=== PATIENT | female | born 1960 | race Caucasian/White ===

== ENCOUNTER → 2018-02-22 | Outpatient (CLI) | payer MEDICARE, MEDICAID | END | disposition home or self-care (01) | LOC: PCVCCLINIC 14:35 | DX: I25.10 Atherosclerotic heart disease of native coronary artery without angina pectoris (principal); J44.9 Chronic obstructive pulmonary disease, unspecified; F17.200 Nicotine dependence, unspecified, uncomplicated; I10 Essential (primary) hypertension; Z79.82 Long term (current) use of aspirin | CPT/HCPCS: 80061; 93005; G0463 ==

== ENCOUNTER → 2018-03-05 | Outpatient (CLI) | payer MEDICARE, MEDICAID ==
[~2018-03-05] MED LIST: CLOPIDOGREL BISULFATE 75 MG TABLET; DIAZEPAM 10 MG TABLET.; HEPARIN SODIUM 5,000 UNIT/ML VIAL for PCVC.; IODIXANOL 270 MG/ML 100 ML VIAL.; IOHEXOL 350 MG/ML 100 ML VIAL.; IOHEXOL 350 MG/ML 50 ML VIAL.; IV NORMAL SALINE 500ML BAG 500 ML; LIDOCAINE 1% PF 30 ML VIAL.; LIDOCAINE 1%/EPI 1:100,000 20 ML VIAL.; MIDAZOLAM HCL/PF 2 MG/2 ML VIAL.; WATER FOR INJECTION,STERILE 20 ML VIAL. IJ; ceFAZolin SODIUM 1 GM VIAL; fentaNYL PF VIAL 100 MCG/2 ML VIAL
== END | disposition home or self-care (01) ==
LOC: PCVCINTER 10:54
DX: I70.248 Atherosclerosis of native arteries of left leg with ulceration of other part of lower leg (principal); L97.828 Non-pressure chronic ulcer of other part of left lower leg with other specified severity; I25.10 Atherosclerotic heart disease of native coronary artery without angina pectoris; I70.1 Atherosclerosis of renal artery; I70.291 Other atherosclerosis of native arteries of extremities, right leg; I10 Essential (primary) hypertension; I25.2 Old myocardial infarction; J44.9 Chronic obstructive pulmonary disease, unspecified; Z79.82 Long term (current) use of aspirin; F17.200 Nicotine dependence, unspecified, uncomplicated
CPT/HCPCS: 36252; 37221; 75625; 75716; 76937; 93460; 99152; 99153; C1725; C1751; C1760; C1769; C1876; C1894; J0690; J1644; J2250; J3010; J3490; J7040; Q9967

== ENCOUNTER → 2019-02-06 | Outpatient (CLI) | payer MEDICARE, MEDICAID ==
--- NOTE | 2019-02-06 16:52 | PCVCIMAG ---
EXAM: AORTOILIAC DUPLEX INDICATION: Peripheral arterial disease. Previous bilateral iliac stents. FINDINGS: AORTA: Suprarenal aorta measures maximum diameter of 2.3 cm. There is not a fusiform infrarenal aortic aneurysm. The infrarenal aorta measures maximum diameter of 1.4 cm. No aortic stenosis. RIGHT COMMON ILIAC ARTERY: Maximum diameter is 0.8 cm. No significant stenosis. RIGHT EXTERNAL ILIAC ARTERY: No significant stenosis. LEFT COMMON ILIAC ARTERY: Maximum diameter is 0.7 cm. No significant stenosis. LEFT EXTERNAL ILIAC ARTERY: No significant stenosis. IMPRESSION: No abdominal aortic aneurysm. No aortoiliac stenosis seen. Previous bilateral iliac stents maintaining satisfactory patency. LOC:[id number]
--- NOTE | 2019-02-06 16:53 | PCVCIMAG ---
EXAM: NONINVASIVE ARTERIAL EXAMINATION OF BOTH LOWER EXTREMITIES INCLUDING PRE AND POST EXERCISE PRESSURE MEASUREMENTS AND DOPPLER WAVEFORMS INDICATION: Peripheral Arterial Disease. Leg pain. FINDINGS: Right Brachial: 108 mm Hg. Right Dorsalis Pedis: 108 mm Hg. Right Posterior Tibial: 122 mm Hg. Right PARAM = 1.12. Left Brachial: 109 mm Hg. Left Dorsalis Pedis: 112 mm Hg. Left Posterior Tibial: 119 mm Hg. Left PARAM = 1.09. Post Exercise: Left Brachial 106 mm Hg. Right Posterior Tibial: 109 mm Hg. Left Posterior Tibial: 113 mm Hg. Right PARAM = 1.03. Left PARAM = 1.07. IMPRESSION: No resting ischemia in the right lower extremity. No exercise induced ischemia in the right lower extremity. No resting ischemia in the left lower extremity. No exercise induced ischemia in the left lower extremity. LOC:[id number]
== END | disposition home or self-care (01) ==
LOC: PCVCIMAG 11:00
PROVIDERS: ATTEND Internal Medicine Cardiovascular Disease
DX: I73.9 Peripheral vascular disease, unspecified (principal); I25.10 Atherosclerotic heart disease of native coronary artery without angina pectoris; I10 Essential (primary) hypertension; E78.5 Hyperlipidemia, unspecified; J44.9 Chronic obstructive pulmonary disease, unspecified; F17.210 Nicotine dependence, cigarettes, uncomplicated; Z79.82 Long term (current) use of aspirin
CPT/HCPCS: 36415; 80061; 93005; 93924; 93978; G0463

== ENCOUNTER → 2019-06-11 | Outpatient (CLI) | payer MEDICARE, MEDICAID ==
--- NOTE | 2019-06-11 16:57 | PCVCIMAG ---
APPROVED REPORT Study performed: 06/11/2019 10:46:15 EXAM: Comprehensive 2D, Doppler, and color-flow Echocardiogram Patient Location: Echo lab Room #: 2Status: routine BSA: 1.46 HR: 70 bpmBP: 106/68 mmHg Rhythm: NSR Other Information Study Quality: Good Risk Factors: Cardiac Risk Factors: Smoking, Hyperlipidemia, HTN Indications COPD Dyspnea CAD 2D Dimensions IVSd: 6.82 (7-11mm)LVOT Diam: 20.00 (18-24mm) LVDd: 39.95 mm PWd: 7.54 (7-11mm)Ascending Ao: 27.91 (22-36mm) LVDs: 25.64 (25-40mm) Left Atrium: 36.72 (27-40mm) Aortic Root: 27.29 mm LV Single Plane 4CH: 72.48 % LV Single Plane 2CH: 64.06 % Biplane EF: 70.1 % Volumes Left Atrial Volume (Systole) Single Plane 4CH: 49.76 mLSingle Plane 2CH: 53.12 mL LA ESV Index: 38.00 mL/m2 Aortic Valve AoV Peak Ryder.: 1.42 m/s AO Peak Gr.: 8.05 mmHgLVOT Max P.96 mmHg LVOT Max V: 0.86 m/s MALIK Vmax: 1.97 cm2 Mitral Valve E/A Ratio: 1.0 MV Decel. Time: 214.73 ms MV E Max Ryder.: 0.78 m/s MV A Ryder.: 0.80 m/s IVRT: 62.28 ms TDI E/Lateral E': 8.67E/Medial E': 11.14 Medial E' Ryder.: 0.07 m/s Lateral E' Ryder.: 0.09 m/s Pulmonary Valve PV Peak Ryder.: 1.29 m/sPV Peak Gr.: 6.67 mmHg DC End Vmax: 1.37 m/s Pulmonary Vein P Vein S: 0.60 m/sP Vein A: 0.27 m/s P Vein D: 0.49 m/sP Vein A Dur.: 107.3 msec P Vein S/D Ratio: 1.22 Tricuspid Valve TR Peak Ryder.: 3.56 m/sRAP Estimate: 10.00 mmHg TR Peak Gr.: 50.83 mmHg PA Pressure: 57.00 mmHg Left Ventricle The left ventricle is normal size. There is normal LV segmental wall motion. There is normal left ventricular wall thickness. Left ventricular systolic function is normal. The left ventricular ejection fraction is within the normal range. LVEF is 65-70%. Moderate diastolic dysfunction is present (pseudonormal filling). Right Ventricle Right ventricle is dilated. Right ventricular systolic function is reduced. Atria Left atrium is mildly dilated. Right atrium is dilated. Aortic Valve The Aortic valve is sclerotic. Trace aortic regurgitation. There is no aortic valvular stenosis. Mitral Valve The mitral valve is normal in structure. Mild mitral regurgitation. No evidence of mitral valve stenosis. Tricuspid Valve The tricuspid valve is normal in structure. Mild to moderate tricuspid regurgitation. Pulmonary artery pressure is 57 mmHg. Moderate pulmonary hypertension. Pulmonic Valve The pulmonary valve is normal in structure. Mild to moderate pulmonic regurgitation. Great Vessels The aortic root is normal in size. The ascending aorta is normal in size. IVC is dilated and collapses <50% with inspiration. Pericardium There is no pericardial effusion. <Conclusion> The left ventricle is normal size. LVEF is 65-70%. Moderate diastolic dysfunction is present (pseudonormal filling). Right ventricle is dilated. Right ventricular systolic function is reduced. Left atrium is mildly dilated. Right atrium is dilated. The Aortic valve is sclerotic. Trace aortic regurgitation. Mild mitral regurgitation. Mild mitral regurgitation. Mild to moderate tricuspid regurgitation. Pulmonary artery pressure is 57 mmHg. Moderate pulmonary hypertension. The aortic root is normal in size. There is no pericardial effusion.
== END | disposition home or self-care (01) ==
LOC: PCVCIMAG 10:43
PROVIDERS: ATTEND Internal Medicine Cardiovascular Disease
DX: I08.8 Other rheumatic multiple valve diseases (principal); I25.10 Atherosclerotic heart disease of native coronary artery without angina pectoris; J44.9 Chronic obstructive pulmonary disease, unspecified; I10 Essential (primary) hypertension; I73.9 Peripheral vascular disease, unspecified; F17.200 Nicotine dependence, unspecified, uncomplicated; M19.90 Unspecified osteoarthritis, unspecified site; I25.2 Old myocardial infarction; Z90.710 Acquired absence of both cervix and uterus; Z88.8 Allergy status to other drugs, medicaments and biological substances; Z90.49 Acquired absence of other specified parts of digestive tract
CPT/HCPCS: 93306